=== PATIENT | female | born 1980 | race African-American/Black ===

== ENCOUNTER 2018-04-08 17:14 | Emergency (ER) | payer OTHER ==
[~2018-04-08] VITALS: Ht 157.5 cm; Wt 83.0 kg
[2018-04-08 17:22] VITALS: BP 121/76
[2018-04-08 17:55] LABS: BILIRUBIN,URINE NEGATIVE (NEG); CLARITY,URINE CLEAR; COLOR,URINE YELLOW; NITRITE,URINE NEGATIVE (NEG); PROTEIN,URINE NEGATIVE (NEG-TRACE); UROBILINOGEN,URINE 0.2 mg/dL (0.2 mg/dL)
[2018-04-08 18:00] LABS: RBC,URINE 0 /HPF (0-2); SQUAMOUS EPITHELIAL CELL,UR MANY /LPF
[2018-04-08] MEDS ORDERED: AZITHROMYCIN 250 MG TABLET. PO ONE (18:00)
[2018-04-08] MEDS ORDERED: cefTRIAXone IM 250 MG VIAL IM ONE (18:00)
[2018-04-08] MEDS ORDERED: metroNIDAZOLE 500 MG TABLET PO ONE (18:00)
[2018-04-08 18:01] LABS: BACTERIA,URINE MANY /HPF (0-FEW); WBC,URINE OCC /HPF (0-4)
--- NOTE | 2018-04-08 19:02 | RAD ---
Ultrasound of the pelvis complete. HISTORY: Pelvic pain Acute transabdominal images were obtained. The bladder was not distended. The uterus is not identified. Transvaginal imaging was performed to evaluate the pelvis. Uterus is normal in size measuring 9.3 x 5 x 4.3 cm. Endometrium measured 7 mm in thickness. There are multiple heterogeneous uterine leiomyomas. There is a hypoechoic leiomyoma at the fundus posteriorly measuring 1.5 cm. There is a heterogeneous area near the fundus measuring 4 cm. There are other smaller lesions. Right ovary measured 2.1 x 1.8 x 1.6 cm. There is a 1.2 cm cyst or follicle in the right ovary. There is flow in the right ovary with Doppler. Left ovary measured 2.1 x 1.7 x 1.6 cm. There are multiple small follicles in the left ovary. There is flow in the left ovary with color imaging and Doppler. IMPRESSION: 1. Multiple uterine leiomyomas. 2. Normal ovaries. Electronically signed by: Oscar Hines MD (04/08/2018 6:57 PM) [facility]
[2018-04-08] MEDS ORDERED: METR500T PO (19:18)
--- NOTE | 2018-04-08 19:19 | PHYS DOC ---
Past Medical History Past Medical History: No Pertinent History (GIUSEPPE AJ APRN) Past Surgical History: Other Additional Past Surgical Histo: L [id number] (GIUSEPPE AJ APRN) Alcohol Use: None Drug Use: None (GIUSEPPE AJ APRN) Adult General Chief Complaint Chief Complaint: PELVIC PAIN HPI HPI Patient is a 38 year old female with no significant medical history who presents to the ED today complaining of 6 out of 10 intermittent sharp bilateral pelvic pain that has been going on for the last 5 days. Patient also complaining of vaginal discharge for the same amount of days. Patient denies anything exacerbating or making the pain better. Denies any nausea vomiting. Denies any chance she is . She states her tubes are tied. Patient is also concerned about STDs would like to be tested and treated. (GIUSEPPE AJ APRN) Review of Systems Review of Systems Constitutional: Denies fever or chills [] Eyes: Denies change in visual acuity, redness, or eye pain [] HENT: Denies nasal congestion or sore throat [] Respiratory: Denies cough or shortness of breath [] Cardiovascular: No additional information not addressed in HPI [] GI: Reports pelvic pain and vaginal discharge, denies nausea, vomiting, bloody stools or diarrhea [] : Denies dysuria or hematuria [] Musculoskeletal: Denies back pain or joint pain [] Integument: Denies rash or skin lesions [] Neurologic: Denies headache, focal weakness or sensory changes [] All other systems were reviewed and found to be within normal limits, except as documented in this note. (GIUSEPPE AJ APRN) Current Medications Current Medications Current Medications Medications (Trade) Dose Ordered Sig/Cristiane Start Time Stop Time Status Last Admin Dose Admin Azithromycin (Zithromax) 1,000 mg 1X ONCE 04/08/18 18:00 04/08/18 18:01 DC 04/08/18 18:59 1,000 MG Ceftriaxone Sodium (Rocephin Im) 250 mg 1X ONCE 04/08/18 18:00 04/08/18 18:01 DC 04/08/18 18:59 250 MG Metronidazole (Flagyl) 2,000 mg 1X ONCE 04/08/18 18:00 04/08/18 18:01 DC 04/08/18 18:59 2,000 MG (BETH SOUZA DO) Allergies Allergies Allergies Coded Allergies Type Severity Reaction Last Updated Verified No Known Drug Allergies 04/08/18 No (BETH SOUZA DO) Physical Exam Physical Exam Constitutional: Well developed, well nourished, no acute distress, non-toxic appearance. [] HENT: Normocephalic, atraumatic, bilateral external ears normal, oropharynx moist, no oral exudates, nose normal. [] Eyes: PERRLA, EOMI, conjunctiva normal, no discharge. [] Neck: Normal range of motion, no tenderness, supple, no stridor. [] Cardiovascular:Heart rate regular rhythm, no murmur [] Lungs & Thorax: Bilateral breath sounds clear to auscultation [] Abdomen: Bowel sounds normal, soft, no tenderness, no masses, no pulsatile masses. [] Pelvic exam External pelvic appears normal, cervix is not visualized due to body habitus, no adnexal tenderness, no CMT, small amount of white discharge in the vaginal vault. Skin: Warm, dry, no erythema, no rash. [] Back: No tenderness, no CVA tenderness. [] Extremities: No tenderness, no cyanosis, no clubbing, ROM intact, no edema. [] Neurologic: Alert and oriented X 3, normal motor function, normal sensory function, no focal deficits noted. [] Psychologic: Affect normal, judgement normal, mood normal. [] (GIUSEPPE AJ APRN) Current Patient Data Vital Signs Vital Signs Date Time Temp Pulse Resp B/P (MAP) Pulse Ox O2 Delivery O2 Flow Rate FiO2 04/08/18 17:22 98.7 77 16 121/76 (91) 100 Room Air 98.7 (BETH SOUZA DO) Lab Values Laboratory Tests Test 04/08/18 17:26 04/08/18 17:46 Urine Collection Type Void Urine Color Yellow Urine Clarity Clear Urine pH 6.0 Urine Specific [place] 1.025 Urine Protein Negative mg/dL (NEG-TRACE) Urine Glucose (UA) Negative mg/dL (NEG) Urine Ketones (Stick) Trace mg/dL (NEG) Urine Blood Negative (NEG) Urine Nitrite Negative (NEG) Urine Bilirubin Negative (NEG) Urine Urobilinogen Dipstick 0.2 mg/dL (0.2 mg/dL) Urine Leukocyte Esterase Negative (NEG) Urine RBC 0 /HPF (0-2) Urine WBC Occ /HPF (0-4) Urine Squamous Epithelial Cells Many /LPF Urine Bacteria Many /HPF (0-FEW) Urine Mucus Mod /LPF POC Urine HCG, Qualitative Hcg negative (Negative) Microbiology 04/08/18 Wet Prep - Final, Complete (BETH SOUZA DO) EKG EKG [] (GIUSEPPE AJ APRN) Radiology/Procedures Radiology/Procedures []PROCEDURE: PELVIS COMPLETE Ultrasound of the pelvis complete. HISTORY: Pelvic pain Acute transabdominal images were obtained. The bladder was not distended. The uterus is not identified. Transvaginal imaging was performed to evaluate the pelvis. Uterus is normal in size measuring 9.3 x 5 x 4.3 cm. Endometrium measured 7 mm in thickness. There are multiple heterogeneous uterine leiomyomas. There is a hypoechoic leiomyoma at the fundus posteriorly measuring 1.5 cm. There is a heterogeneous area near the fundus measuring 4 cm. There are other smaller lesions. Right ovary measured 2.1 x 1.8 x 1.6 cm. There is a 1.2 cm cyst or follicle in the right ovary. There is flow in the right ovary with Doppler. Left ovary measured 2.1 x 1.7 x 1.6 cm. There are multiple small follicles in the left ovary. There is flow in the left ovary with color imaging and Doppler. IMPRESSION: 1. Multiple uterine leiomyomas. 2. Normal ovaries. Electronically signed by: Oscar Hines MD (04/08/2018 6:57 PM) [facility] DICTATED and SIGNED BY: OSCAR HINES MD DATE: 04/08/18 365 (GIUSEPPE AJ APRN) Course & Med Decision Making Course & Med Decision Making Pertinent Labs and Imaging studies reviewed. (See chart for details) This is a 38-year-old female patient presenting to the ED today with pelvic pain and vaginal discharge. Patient would also like to be treated for STDs, was given prophylaxis STD treatment in the ED. Negative urine hCG, urine analysis is negative for infection. Wet prep positive for BV-on Flagyl. Pelvic ultrasound was noted for Leiomyomas. Patient instructed to follow-up with the OB /[employer]BY RAILS DEVELOPER. (GIUSEPPE AJ APRN) Dragon Disclaimer Dragon Disclaimer This electronic medical record was generated, in whole or in part, using a voice recognition dictation system. (GIUSEPPE AJ APRN) Departure Departure Impression: Primary Impression: Fibroids Additional Impressions: Bacterial vaginosis Concern about STD in female without diagnosis Disposition: 01 HOME, SELF-CARE Condition: STABLE Referrals: ANI NIÑO MD (PCP) ROMERO BERMAN MD Follow-up in one week Patient Instructions: Bacterial Vaginosis, [id number], Fibroids, [id number] Additional Instructions: You were evaluated in the emergency room for pelvic pain. You were noted to have fibroids. This needs to be followed up with an PATCH MACHINE OPERATOR. You can take Tylenol /Motrin for pain. Scripts Metronidazole (FLAGYL) 500 Mg Tablet 1 TAB PO BID, #10 TAB Prov: GIUSEPPE AJ APRN 04/08/18 Attending Signature Attending Signature I have reviewed the PA/ECOLOGICAL ECONOMIST's note and plan of care. I was available for consultation as needed during the patient's visit in the emergency department. I agree with the clinical impression, plan, and disposition. (BETH SOUZA DO) Problem Qualifiers GIUSEPPE AJ APRN Apr 08, 2018 19:19 BETH SOUZA DO Apr 09, 2018 05:15
[2018-04-10 13:23] LABS: GC PROBE Negative (Negative)
== END 2018-04-08 19:26 | disposition home or self-care (01) ==
LOC: ER 17:14
DX: D25.9 Leiomyoma of uterus, unspecified (principal); N76.0 Acute vaginitis; B96.89 Other specified bacterial agents as the cause of diseases classified elsewhere; Z20.2 Contact with and (suspected) exposure to infections with a predominantly sexual mode of transmission
CPT/HCPCS: 76856; 81001; 81025; 96372; 99284; J0696; Q0111; Q0144; 87086; 87491; 87591